=== PATIENT | female | born 1945 | race Caucasian/White ===

== ENCOUNTER → 2024-06-08 15:39 | Outpatient (REF) | payer MEDICARE, SELFPAY | LOC: WDC 15:39 | PROVIDERS: ATTENDING PHYSICIAN Obstetrics & Gynecology Gynecology; FAMILY PHYSICIAN Family Medicine | DX: Z12.31 Encounter for screening mammogram for malignant neoplasm of breast (principal) | CPT/HCPCS: 77063; 77067 ==

== ENCOUNTER → 2024-07-29 08:29 | Outpatient (REF) | payer MEDICARE, SELFPAY ==
[2024-07-29 10:45] LABS: Hematocrit 37.1 % (37.0-47.0); Hemoglobin 12.7 g/dL (12.0-16.0); Mean Corp Hgb Conc. 34.2 g/dL (33.0-37.0); Mean Corpuscular Hgb 30.2 pg (27.0-31.0); Mean Corpuscular Volume 88.3 fL (81.0-99.0); Mean Platelet Volume 10.2 fL (7.4-10.4); Platelet Count 207 10^3/uL (130-400); Red Cell Dist. Width 13.1 % (11.5-14.5); White Blood Cell Count 4.3 10^3/uL (4.8-10.8)
[2024-07-29 10:57] LABS: Blood Urea Nitrogen 13 mg/dl (7-17); Calcium 9.6 mg/dl (8.4-10.2); Carbon Dioxide 26 mmol/L (22-30); Chloride 102 mmol/L (98-107); Glucose 133 mg/dl (70-99); Potassium 4.1 mmol/L (3.5-5.1); Sodium 141 mmol/L (135-145); eGFR > 60.00
== END ==
LOC: SDSPAT 08:29
PROVIDERS: ATTENDING PHYSICIAN Obstetrics & Gynecology; FAMILY PHYSICIAN Family Medicine; OTHER PHYSICIAN Internal Medicine Advanced Heart Failure and Transplant Cardiology; OTHER PHYSICIAN Obstetrics & Gynecology Gynecology
DX: Z01.818 Encounter for other preprocedural examination (principal)
CPT/HCPCS: 36415; 80048; 85027; 86850; 86900; 86901; 93005

== ENCOUNTER 2024-08-02 06:06 | Day surgery (SDC) | payer MEDICARE, SELFPAY ==
[2024-07-29 09:03] VITALS: BMI 27.9
[2024-08-02] VITALS (13 sets, daily range): BP systolic 100–120; BP diastolic 50–70; BMI 27.9
[2024-08-02 07:24] LABS: Glucose - Point of Care 138 mg/dl (70-99)
[2024-08-02 09:17] LABS: Glucose - Point of Care 178 mg/dl (70-99)
[2024-08-02] MEDS: DILAUDID 0.25 MG IV (11:10)
[2024-08-02 11:13] LABS: Glucose - Point of Care 175 mg/dl (70-99)
--- NOTE | 2024-08-02 12:38 | SUR.PHASEI ---
patient more comfortable after pain medication and slept, frequent repostioning. vss, felt a ' spurt' of drainage - peripad saturated and small amount on blue pad, Dr Polanco updated. Dr Polanco visited at 1200 - now very small amount of vaginal
bloody drainage. Dr Polanco spoke with patient - explained OR procedure and plan of care post op. Discharge to [facility] aftere 300cc of NSS instilled in bladder via caicedo - sterile technique and caicedo then discontinued.
[2024-08-02] MEDS: TYLENOL 650 MG PO (16:00)
== END 2024-08-02 16:01 | disposition home or self-care (01) ==
LOC: SDS 06:06
PROVIDERS: ATTENDING PHYSICIAN Obstetrics & Gynecology; FAMILY PHYSICIAN Family Medicine
DX: N81.3 Complete uterovaginal prolapse (principal); N39.3 Stress incontinence (female) (male); N95.8 Other specified menopausal and perimenopausal disorders; D25.9 Leiomyoma of uterus, unspecified; N83.8 Other noninflammatory disorders of ovary, fallopian tube and broad ligament
CPT/HCPCS: 57425; 58571; 57250; 57288; 88305; 82962; 86900; 86901; C1763; C1771

== ENCOUNTER → 2024-08-17 17:58 | Outpatient (REF) | payer MEDICARE, SELFPAY ==
[2024-08-17 19:56] LABS: Urine Albumin 1+ (Neg - Trace); Urine Bilirubin Negative (Negative); Urine Character Very Cloudy (Clear); Urine Color Yellow; Urine Glucose 1+ (Negative); Urine Ketone Negative (Negative); Urine Leukocyte 2+ (Negative); Urine Nitrite Negative (Negative); Urine Occult Blood 3+ (Negative); Urine Urobilinogen Negative (Neg - 1+)
[2024-08-17 20:03] LABS: Urine Bacteria Many (Negative); Urine Red Blood Cell 0-2 /HPF (0-2); Urine Triple Phosphate Crystal Present; Urine White Cell 16-20 /HPF (0-5)
== END ==
LOC: CLAB 17:58
PROVIDERS: ATTENDING PHYSICIAN Physician Assistant
DX: N39.0 Urinary tract infection, site not specified (principal)
CPT/HCPCS: 81003; 81015; 87086; 87088; 87186